=== PATIENT | male | born 1965 | race Caucasian/White ===

== ENCOUNTER 2020-05-30 07:03 | Outpatient (CLI) | payer OTHER ==
[2020-05-31 02:09] LABS: SARS-CoV-2 MS2 Positive; SARS-CoV-2 N Gene Negative; SARS-CoV-2 S Gene Negative; SARS-CoV-2 by NAA Not Detected (NotDetected); SARS-CoV-2 orf1ab Negative
== END 2020-05-30 07:04 | disposition home or self-care (01) ==
LOC: LABBT 07:03
PROVIDERS: ATTEND Specialist
DX: Z01.812 Encounter for preprocedural laboratory examination (principal); K40.90 Unilateral inguinal hernia, without obstruction or gangrene, not specified as recurrent; Z20.828 Contact with and (suspected) exposure to other viral communicable diseases
CPT/HCPCS: 87635; U0003

== ENCOUNTER 2020-06-01 05:53 | Day surgery (SDC) | payer OTHER ==
[2020-05-30 12:07] VITALS: BMI 30.2
--- NOTE | 2020-05-31 06:30 | HP ---
HISTORY: Franklin Wilburn is a 54-year-old male, rides horses, works cattle, has had a left inguinal hernia enlarging over the past year. He has seen Dr. Robin. He has had labs recently that are normal, CBC and comp met. These were done in the last week. Exam reveals a left inguinal hernia. Plan is for robot/laparoscopic mesh repair of left inguinal hernia. Evaluation of the right side and repair if indicated. ALLERGIES: NONE. SOCIAL HISTORY: Tobacco, none. Alcohol, rarely. MEDICATIONS: Lipitor. PAST MEDICAL HISTORY: Hyperlipidemia. PAST SURGICAL HISTORY: [place] teeth, colonoscopy in 2019, polyp resection by Dr. Huff, 5-year interval recommendation. FAMILY HISTORY: Hyperlipidemia, coronary artery disease, ovarian cancer, elevated cholesterol. REVIEW OF SYSTEMS: Ten-point noncontributory. No cardiac symptoms. PHYSICAL EXAMINATION: VITAL SIGNS: 243 pounds, 6 feet 2 inches, 31 BMI. Blood pressure 154/82, pulse 68, temperature 97.8 degrees. HEAD, EARS EYES, NOSE, AND THROAT: Unremarkable. LUNGS: Clear to auscultation. CARDIAC: Regular rate and rhythm without murmur or gallop. ABDOMEN: Soft, nontender. No masses. Small umbilical hernia, reducible, asymptomatic. EXTREMITIES: Unremarkable. No ankle edema. NEUROLOGIC: Intact. SKIN: Turgor normal. Skin color normal. GENITOURINARY: Testicles normal. Right groin without hernia on standing, Valsalva. Left inguinal hernia standing, enlarges on Valsalva. ASSESSMENT: Left inguinal hernia. PLAN: Robot/laparoscopic mesh repair outpatient. He understands risks and benefits. Risks of infection, bleeding, reoperation, recurrence, chronic pain, and consents. Job ID: [id number]
[2020-06-01] MEDS ORDERED: Ketorolac Tromethamine 30 MG/ML VIAL ONE (06:11)
[2020-06-01] MEDS ORDERED: Acetaminophen 500 MG TAB ONE (06:11)
[2020-06-01] MEDS ORDERED: Gabapentin 300 MG CAP ONE (06:11)
[2020-06-01] MEDS ORDERED: Lidocaine 1% w/Epinephrine 1:100K 20 ML VIAL ONE (06:34)
[2020-06-01] MEDS ORDERED: Bupivacaine PF 0.5% 30 ML VIAL ONE (06:34)
[2020-06-01] MEDS ORDERED: Fentanyl 100 MCG/2 ML VIAL ONE ×2 (06:37)
[2020-06-01] MEDS ORDERED: Midazolam HCl 2 mg/2 ml Vial ONE (07:23)
--- NOTE | 2020-06-01 10:23 | OP ---
DATE OF PROCEDURE: 06/01/2020 PREOPERATIVE DIAGNOSIS: Left inguinal hernia. POSTOPERATIVE DIANOGSIS: Left inguinal hernia. PROCEDURE PERFORMED: Robot/laparoscopic large 3DMax Bard mesh, repair of left inguinal hernia. ANESTHESIA: General, local 0.5% Marcaine 30 mL mixed with 1% Xylocaine with epinephrine 20 mL. Schultz catheter placed at the beginning of the procedure and removed at the end. DESCRIPTION OF PROCEDURE: The patient was taken to the operating room, where under anesthesia, abdomen was clipped of hair, prepared with ChloraPrep and draped in routine fashion. Local anesthetic was infiltrated in the skin and subcutaneous tissue about all port sites and for left ilioinguinal nerve block. The left midline supraumbilical incision made, pneumoperitoneum to 15 mmHg was obtained with a Veress needle, replaced with an 11 balloon port. Bilateral abdominal incisions made in anterior axillary lines and 8 mm port was placed. Robot docked, positioned, and robot inguinal hernia repair undertaken. Right groin was without hernia. Peritoneal flap taken down medially to laterally to the anterior superior iliac spine. Sigmoid colon and omentum reduced from the hernia defect. Peritoneal flap dissected free medially and laterally along with the cord structures, skeletonizing the cord structures of fatty tissue and hernia sac, gained hemostasis with the cautery. The Frederic's ligament identified. Mesh was placed and secured medially to Frederic's ligament with 2-0 Vicryl and to the anterior abdominal wall to the left inferior epigastric vessels which were preserved, kept free of harm, approximating mesh to the abdominal wall with 2-0 Vicryl. Good hemostasis noted. Mesh properly positioned, covering at least 8 cm of cord structures. Peritoneal flap closed with continuous suture of #2-0 Stratafix. Good hemostasis noted. Pneumoperitoneum reduced. All instruments were removed and all skin incisions were approximated with interrupted subdermal 4-0 Monocryl and Dermabond applied. Job ID: [id number]
[2020-06-01] MEDS ORDERED: HYDROcodone/Acetaminophen 5/325 mg Tablet ONE (11:26)
[2020-06-01] MEDS ORDERED: ePHEDrine 50 MG/ML VIAL ONE (11:43)
[2020-06-01] MEDS ORDERED: Glycopyrrolate 0.2 MG/ML 5 ML SYRINGE ONE (11:43)
[2020-06-01] MEDS ORDERED: Ondansetron PF 4 MG/2 ML Vial ONE (11:43)
[2020-06-01] MEDS ORDERED: Dexamethasone 20 MG/5 ML VIAL ONE (11:43)
[2020-06-01] MEDS ORDERED: PROPOFOL 200 MG/20 ML VIAL ONE (11:43)
[2020-06-01] MEDS ORDERED: Rocuronium Bromide 10 MG/ML (10ML VIAL) ONE (11:43)
[2020-06-01] MEDS ORDERED: Lidocaine 1% PF 5 ML VIAL ONE (11:43)
== END 2020-06-01 11:35 | disposition home or self-care (01) ==
LOC: SDC 05:53
PROVIDERS: ATTEND Specialist
PROC: 0YU64JZ Supplement Left Inguinal Region with Synthetic Substitute, Percutaneous Endoscopic Approach (ICD-10-PCS; principal; 2020-06-01)
DX: K40.90 Unilateral inguinal hernia, without obstruction or gangrene, not specified as recurrent (principal); E78.5 Hyperlipidemia, unspecified; Z79.899 Other long term (current) drug therapy
CPT/HCPCS: C1781; J0690; J1100; J1885; J2250; J2405; J2704; J3010; J3490; S0020